=== PATIENT | female | born 1985 | race Caucasian/White ===

== ENCOUNTER 2016-09-08 15:24 | Emergency (ER) | payer BC ==
[2016-09-08 15:38] VITALS: BP 125/71; PULSE 87; O2SAT 97
[2016-09-08] MEDS ORDERED: Sodium Chloride 0.9% 1000 ML 1,000 ML IV STA (15:42)
[2016-09-08] MEDS ORDERED: Sodium Chloride 0.9% 1000 ML 1,000 ML ONE (15:49)
--- NOTE | 2016-09-08 15:54 | ERPHSYRPT ---
- History of Present Illness Time Seen by Provider: 09/08/16 15:27 Source: patient Patient Subjective Stated Complaint: PT REPROTS BEING DX WITH UTI SUNDAY PLACED ON BACTRIM-REPORTS LOW BACK PAIN-INCREASED FREQUENCY WITH "KNIVES GOING THROUGH MY URETHRA"-DENIES FEVER Triage Nursing Assessment: PT PINK WARM ET DRY-A & O X 3-RESP NONLABORED-ABD NONTENDER TO PALP Physician History: CC: dysuria/low back pain Hx; 31 y/o healthy patient of Dr Honeycutt. She was seen in [facility] earlier this week for dysuria, urgency, hematuria. She started bactrim and azo as urine showed nitrites and infection. She now has worsened bilateral low back pain. No fever, chills, vomiting. She called in and the urine culture was no growth so she came back for evaluation. She has hx of remote kidney stone. LMP August 17. She works as a nurse. Timing/Duration: day(s) (several) Allergies/Adverse Reactions: No Known Drug Allergies Allergy (Verified 09/08/16 15:38) Hx Tetanus, Diphtheria Vaccination/Date Given: No Hx Influenza Vaccination/Date Given: Yes Hx Pneumococcal Vaccination/Date Given: No - Review of Systems Constitutional: Malaise, No Fever, No Chills Eyes: No Symptoms Ears, Nose, & Throat: No Symptoms Respiratory: No Cough Cardiac: No Chest Pain Abdominal/Gastrointestinal: No Abdominal Pain, No Nausea, No Vomiting Genitourinary Symptoms: Dysuria, Frequency, Hematuria, Urgency, No , No Vaginal Bleeding, No Vaginal Discharge Musculoskeletal: Back Pain (bilateral low) Skin: No Rash Neurological: No Headache All Other Systems: Reviewed and Negative - Past Medical History Pertinent Past Medical History: Yes Neurological History: No Pertinent History ENT History: No Pertinent History Cardiac History: No Pertinent History Respiratory History: No Pertinent History Endocrine Medical History: No Pertinent History Musculoskeletal History: No Pertinent History GI Medical History: GERD History: No Pertinent History Psycho-Social History: No Pertinent History Female Reproductive Disorders: No Pertinent History - Past Surgical History Past Surgical History: Yes Neuro Surgical History: No Pertinent History Cardiac: No Pertinent History Respiratory: No Pertinent History Gastrointestinal: No Pertinent History Genitourinary: No Pertinent History Musculoskeletal: No Pertinent History Female Surgical History: Other Other Surgical History: D&C - Social History Smoking Status: Never smoker Exposure to second hand smoke: No Drug Use: none Patient Lives 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) - Female History Hx Last Menstrual Period: AUGUST 16 2016 - Nursing Vital Signs Nursing Vital Signs: Initial Vital Signs Temperature 98.4 F Temperature Source Oral Pulse Rate 87 Respiratory Rate 22 Blood Pressure [] 125/71 Pain Intensity 5 - Physical Exam General Appearance: alert Eye Exam: PERRL/EOMI Ears, Nose, Throat Exam: normal ENT inspection, moist mucous membranes Neck Exam: normal inspection, non-tender, supple Respiratory Exam: normal breath sounds, lungs clear Cardiovascular Exam: regular rate/rhythm, No murmur Gastrointestinal/Abdomen Exam: soft, No tenderness, No distention, No mass, No guarding Back Exam: No CVA tenderness, No vertebral tenderness Extremity Exam: normal inspection, normal range of motion Neurologic Exam: alert, oriented x 3, cooperative, 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, sensation nml, No motor deficits Skin Exam: warm, dry, No rash SpO2 Interpretation: normal SpO2: 97 Oxygen Delivery: Room Air - Course Nursing assessment & vital signs reviewed: Yes - Radiology Ultrasound Exam kidney Ultrasound: Other (per RDMS: no hydronephrosis, bladder wall thickened, incidental left ovarian cyst) Ordered Tests: Active Orders 24 hr Category Date Time Status IV Insertion STAT Care 09/08/16 15:42 Active KIDNEY [US] Stat Exams 09/08/16 15:42 Completed CBC W DIFF Stat Lab 09/08/16 15:42 Completed CMP Stat Lab 09/08/16 16:00 Completed CULTURE,URINE Stat Lab 09/08/16 15:42 Ordered HCG QUALITATIVE,SERUM Stat Lab 09/08/16 16:00 Completed Lactic Acid Urgent Lab 09/08/16 15:59 Completed UA W/ MICROSCOPIC Stat Lab 09/08/16 15:42 Completed Medication Summary Generic Name Dose Route Start Last Admin Trade Name Freq PRN Reason Stop Dose Admin Sodium Chloride 1,000 mls @ 999 mls/hr 09/08/16 15:42 09/08/16 15:52 Sodium Chloride 0.9% 1000 Ml IV 09/08/16 16:42 999 mls/hr .Q1H1M STA Administration Ceftriaxone Sodium/Dextrose 50 mls @ 100 mls/hr 09/08/16 16:08 09/08/16 16:14 Rocephin 1 Gm-D5w 50 Ml Bag IV 09/08/16 16:37 100 mls/hr STAT ONE Administration Discontinued Medications Generic Name Dose Route Start Last Admin Trade Name Darius PRN Reason Stop Dose Admin Sodium Chloride Confirm 09/08/16 15:49 Sodium Chloride 0.9% 1000 Ml Administered 09/08/16 15:50 Dose 1,000 mls @ ud .ROUTE .STK-MED ONE Ceftriaxone Sodium/Dextrose Confirm 09/08/16 16:12 Rocephin 1 Gm-D5w 50 Ml Bag Administered 09/08/16 16:13 Dose 50 mls @ ud IV .STK-MED ONE Lab/Rad Data: Laboratory Result Diagrams 09/08/16 15:42 09/08/16 16:00 Laboratory Results 09/08/16 09/08/16 09/08/16 Range/Units 16:00 16:00 15:59 WBC (4.0-10.5) K/mm3 RBC (4.1-5.4) M/mm3 Hgb (12.0-16.0) gm/dl Hct (35-47) % MCV (78-100) fl MCH (26-32) pg MCHC (32-36) g/dl RDW (11.5-14.0) % Plt Count (150-450) K/mm3 MPV (6-9.5) fl Gran % (36.0-66.0) % Lymphocytes % (24.0-44.0) % Monocytes % (0.0-12.0) % Eosinophils % (0.00-5.0) % Basophils % (0.0-0.4) % Basophils # (0-0.4) Sodium 139 (136-145) mEq/L Potassium 3.8 (3.5-5.1) mEq/L Chloride 105 (98-107) mEq/L Carbon Dioxide 26.5 (21-32) mEq/L Anion Gap 11.0 (5-15) MEQ/L BUN 11 (9-20) mg/dL Creatinine 1.10 (0.55-1.30) mg/dl Estimated GFR > 60 ML/MIN Glucose 102 (70-110) MG/DL Lactic Acid 1.4 (0.4-2.0) Calcium 8.8 (8.5-10.1) mg/dL Total Bilirubin 0.9 (0.2-1.0) mg/dL AST 13 L (15-37) U/L ALT 18 (12-78) U/L Alkaline Phosphatase 39 L (46-116) U/L Serum Total Protein 6.9 (6.4-8.2) gm/dL Albumin 3.4 (3.4-5.0) g/dL Serum , Qual NEGATIVE (Negative) Ur Collection Type Urine Color (YELLOW) Urine Appearance (CLEAR) Urine pH (5-6) Ur Specific Weston (1.005-1.025) Urine Protein (Negative) Urine Glucose (UA) (NEGATIVE) mg/dL Urine Ketones (NEGATIVE) Urine Nitrite (NEGATIVE) Urine Bilirubin (NEGATIVE) Urine Urobilinogen (0-1) mg/dL Urine WBC (Auto) (NEGATIVE) Urine RBC (Auto) (0-5) Shaw/ul Urine Microscopic RBC (0-2) /HPF Urine Microscopic WBC (0-5) /HPF Ur Epithelial Cells (FEW) /HPF Urine Bacteria (NEGATIVE) /HPF Specimen Received 09/08/16 09/08/16 Range/Units 15:42 15:42 WBC 8.8 (4.0-10.5) K/mm3 RBC 4.08 L (4.1-5.4) M/mm3 Hgb 12.2 (12.0-16.0) gm/dl Hct 36.8 (35-47) % MCV 90.2 (78-100) fl MCH 29.9 (26-32) pg MCHC 33.2 (32-36) g/dl RDW 12.8 (11.5-14.0) % Plt Count 196 (150-450) K/mm3 MPV 10.8 H (6-9.5) fl Gran % 74.2 H (36.0-66.0) % Lymphocytes % 19.6 L (24.0-44.0) % Monocytes % 5.8 (0.0-12.0) % Eosinophils % 0.3 (0.00-5.0) % Basophils % 0.1 (0.0-0.4) % Basophils # 0.01 (0-0.4) Sodium (136-145) mEq/L Potassium (3.5-5.1) mEq/L Chloride (98-107) mEq/L Carbon Dioxide (21-32) mEq/L Anion Gap (5-15) MEQ/L BUN (9-20) mg/dL Creatinine (0.55-1.30) mg/dl Estimated GFR ML/MIN Glucose (70-110) MG/DL Lactic Acid (0.4-2.0) Calcium (8.5-10.1) mg/dL Total Bilirubin (0.2-1.0) mg/dL AST (15-37) U/L ALT (12-78) U/L Alkaline Phosphatase (46-116) U/L Serum Total Protein (6.4-8.2) gm/dL Albumin (3.4-5.0) g/dL Serum , Qual (Negative) Ur Collection Type CLEAN CATCH Urine Color ORANGE (YELLOW) Urine Appearance CLOUDY (CLEAR) Urine pH 5.0 (5-6) Ur Specific Weston <=1.005 (1.005-1.025) Urine Protein 100 (Negative) Urine Glucose (UA) 100 (NEGATIVE) mg/dL Urine Ketones TRACE (NEGATIVE) Urine Nitrite POSITIVE (NEGATIVE) Urine Bilirubin NEGATIVE (NEGATIVE) Urine Urobilinogen 2 (0-1) mg/dL Urine WBC (Auto) LARGE (NEGATIVE) Urine RBC (Auto) LARGE (0-5) Shaw/ul Urine Microscopic RBC 50-100 (0-2) /HPF Urine Microscopic WBC 50-100 (0-5) /HPF Ur Epithelial Cells MODERATE (FEW) /HPF Urine Bacteria MODERATE (NEGATIVE) /HPF Specimen Received 09/08/16 1545 - Progress Progress Note: 09/08/16 16:29 The patient is stable. Likely has UTI even thought the culture in [facility] was negative. Will adjust to 3rd gen cephalosporin. Follow up advised. Counseled pt/family regarding: lab results, diagnosis, need for follow-up, rad results - Departure Time of Disposition: 16:30 Departure Disposition: Home Clinical Impression: UTI (urinary tract infection) Qualifiers: Urinary tract infection type: acute cystitis Hematuria presence: with hematuria Qualified Code(s): N30.01 - Acute cystitis with hematuria Condition: Fair Critical Care Time: No Referrals: LACIE HONEYCUTT MD [Primary Care Provider] - Instructions: Urinary Tract Infection (UTI) Additional Instructions: URINARY TRACT INFECTION 1. You will need to drink plenty of fluids in order to keep your urinary system flushed. These fluids should mainly consist of water and juices. 2. Take medications as directed. You need to completely finish any antiobiotic prescription given. 3. Try to avoid coffee, tea, alcohol, and seasoned foods as they may cause bladder irritation. 4. If signs and symptoms persist after 3-4 days, you will need to follow up with your family physician. 5. Female Patients: A. Avoid intercourse for 3-4 days. B. Empty bladder before and after intercourse to reduce risk of re- infection. C. After emptying bladder, wipe from front to back to reduce the risk of re- infection. Change to omnicef. Plenty of fluids. Follow up next week with Dr Honeycutt. Return for fever, vomiting, concerns. Prescriptions: Cefdinir [Omnicef 300 mg] 300 mg PO BID #20 capsule
[2016-09-08 16:06] LABS: BASOPHIL % 0.1 % (0.0-0.4); Eosinophil % 0.3 % (0.00-5.0); Granulocytes % 74.2 % (36.0-66.0); Lymphocytes % 19.6 % (24.0-44.0); Mean Cell Volume 90.2 fl (78-100); Mean Corpuscular Hemoglobin 29.9 pg (26-32); Mean Platelet Volume 10.8 fl (6-9.5); Monocytes % 5.8 % (0.0-12.0); Platelet Count 196 K/mm3 (150-450); Red Blood Count 4.08 M/mm3 (4.1-5.4); Red Cell Distribution Width 12.8 % (11.5-14.0); White Blood Count 8.8 K/mm3 (4.0-10.5)
[2016-09-08] MEDS ORDERED: ROCEPHIN 1 Gm-D5w 50 ml Bag** 50 ML IV ONE ×2 (16:08→16:12)
[2016-09-08 16:12] LABS: COMPLETE URINE MICROSCOPIC? YES; Collection Type CLEAN CATCH
[2016-09-08 16:19] LABS: Bacteria MODERATE /HPF (NEGATIVE); Epithelial Cells MODERATE /HPF (FEW); WBC 50-100 /HPF (0-5)
[2016-09-08 16:22] LABS: ALBUMIN 3.4 g/dL (3.4-5.0); ALKALINE PHOSPHATASE 39 U/L (46-116); BILIRUBIN,TOTAL 0.9 mg/dL (0.2-1.0); BLOOD UREA NITROGEN 11 mg/dL (9-20); CHLORIDE 105 mEq/L (98-107); Carbon Dioxide 26.5 mEq/L (21-32); Glucose 102 MG/DL (70-110); Potassium 3.8 mEq/L (3.5-5.1); SGOT/AST 13 U/L (15-37); SGPT/ALT 18 U/L (12-78); SODIUM 139 mEq/L (136-145); Total Protein 6.9 gm/dL (6.4-8.2)
--- NOTE | 2016-09-08 16:27 | XRAY ---
Indication: Back pain. Two-dimensional renal sonogram performed. Comparison: None Both kidneys normal in reniform shape with normal color perfusion. The right kidney measures 11.0 x 4.7 x 4.3 cm and the left measures 9.9 x 4.5 x 5.3 cm. No suspicious solid/cystic mass or hydronephrosis. Cortical medullary differentiation preserved without cortical thinning. Images of the urinary bladder is near empty with normal bilateral ureteral jets. Incidental left ovary cysts overall measuring 4.5 cm in greatest dimension. Impression: Normal renal sonogram. Incidental left ovary cysts.
== END 2016-09-08 16:40 | disposition home or self-care (01) ==
LOC: ED 15:24
DX: N30.01 Acute cystitis with hematuria (principal); R30.0 Dysuria; M54.5 Low back pain
CPT/HCPCS: 36000; 36415; 76770; 80053; 81000; 83605; 84703; 85025; 87086; 96360; 96365; 99284; J0696